=== PATIENT | male | born 1940 | race Caucasian/White ===

== ENCOUNTER → 2022-02-11 | Outpatient (CLI) | payer MEDICARE | LOC: M ONCR 11:18 | PROVIDERS: ATTEND General Practice | DX: C61 Malignant neoplasm of prostate (principal); C79.51 Secondary malignant neoplasm of bone ==

== ENCOUNTER → 2022-03-04 | Outpatient (CLI) | payer MEDICARE ==
[~2022-03-04] VITALS: Ht 180.3 cm; Wt 95.3 kg
[~2022-03-04] MED LIST: ACET650T61 PO; ASPI81TA26 PO; CENT1TAB PO; EZET10TA21 PO; FAMO20TA PO; FLUT50SP33 NARES; HYDR-3713 PO; LISI10TA22 PO; METO1TAB33 PO; NITR0.4S14 SL; NORV5TAB PO; OXYB5TAB10 PO; PROB250C PO
[2022-03-04] MEDS: XOFIGO(RADIUM-223 DICHLORIDE) 180UCI 6ML VL (1,100KBQ/ML) (30UCI/ML) IV ONE ×2 (13:30→13:42)
== END ==
LOC: M ONCR 12:40
PROVIDERS: ATTEND General Practice
DX: C61 Malignant neoplasm of prostate (principal); C79.51 Secondary malignant neoplasm of bone
CPT/HCPCS: 77300; 79101; A9606